=== PATIENT | female | born 1980 ===

== ENCOUNTER 2016-10-27 04:46 | Observation (INO) | payer BC ==
[2016-10-27 04:53] VITALS: RESP 20
--- NOTE | 2016-10-27 05:44 | ED PDOC ---
HPI: Abdomen Time Seen by Provider: 10/27/16 04:54 Chief Complaint (Nursing): Abdominal Pain Chief Complaint (Provider): Abdominal pain History Per: Patient History/Exam Limitations: no limitations Onset/Duration Of Symptoms: Hrs (2x hours prior to arrival) Current Symptoms Are (Timing): Still Present Severity: Moderate Location Of Pain/Discomfort: RUQ Quality Of Discomfort: Cramping Associated Symptoms: Nausea. denies: Vomiting, Diarrhea Additional Complaint(s): 35 year old female and is 6x weeks presents to the ED with complaints of RUQ abdominal pain that started 2x hours prior to arrival. She reports that she woke up with cramping and pain in her RUQ. She has associated symptoms of nausea, but denies having nausea, vomiting, fever, vaginal bleeding , and lower abdominal pain. She has not yet had an ultrasound for this . PMD: Quincy Crawley MD [employer]ER: Jermaine Luna MD Abnormal Vaginal Bleeding: No : 3 Para: 2 Past Medical History Reviewed: Historical Data, Nursing Documentation, Vital Signs Vital Signs: Last Vital Signs Temp 99.2 F 10/27/16 11:44 Pulse 80 10/27/16 11:44 Resp 20 10/27/16 11:44 BP 112/73 10/27/16 11:44 Pulse Ox 99 10/27/16 13:47 - Medical History PMH: No Chronic Diseases - Surgical History Surgical History: No Surg Hx - Family History Family History: States: No Known Family Hx - Allergies Allergies/Adverse Reactions: Allergies Allergy/AdvReac Type Severity Reaction Status Date / Time No Known Allergies Allergy Verified 10/27/16 05:05 Review of Systems ROS Statement: Except As Marked, All Systems Reviewed And Found Negative Constitutional: Negative for: Fever Gastrointestinal: Positive for: Nausea, Abdominal Pain (RUQ pain, no lower abdominal pain). Negative for: Vomiting, Diarrhea Genitourinary Female: Negative for: Vaginal Bleeding Physical Exam - Reviewed Nursing Documentation Reviewed: Yes Vital Signs Reviewed: Yes - Physical Exam Appears: Positive for: Well, Non-toxic, Uncomfortable Head Exam: Positive for: ATRAUMATIC, NORMOCEPHALIC Cardiovascular/Chest: Positive for: Regular Rate, Rhythm Respiratory: Positive for: Normal Breath Sounds Gastrointestinal/Abdominal: Positive for: Soft, Tenderness (positive walton's sing, RUQ tenderness, mild epigastric tenderness) Back: Positive for: Normal Inspection. Negative for: L CVA Tenderness, R CVA Tenderness Extremity: Positive for: Normal ROM Neurologic/Psych: Positive for: Alert, Oriented (3x) - Laboratory Results Result Diagrams: 10/27/16 05:30 10/27/16 05:29 - ECG O2 Sat by Pulse Oximetry: 99 (RA) Pulse Ox Interpretation: Normal Medical Decision Making Medical Decision Makin:54 Initial impression: 35 year old female with RUQ pain. Differential diagnoses include but are not limited to intrahepatic hemostasis, acute cholecystitis, biliary colic, colitis, and gastritis. Other conditions are considered but not listed. Initial plan: * US gallbladder and common duct * serum * CMP * lipase * test * dipstick * CBC * tylenol 650mg PO * reevaluation 5:25 Patient will be placed into ED observation secondary to clinical condition. See ED observation note for further updates. Scribe Attestation: Documented by Marlena Fox, acting as a scribe for Maxwell Ro MD. Provider Scribe Attestation: All medical record entries made by the Scribe were at my direction and personally dictated by me. I have reviewed the chart and agree that the record accurately reflects my personal performance of the history, physical exam, medical decision making, and the department course for this patient. I have also personally directed, reviewed, and agree with the discharge instructions and disposition. ED OBSERVATION Date of observation admission: 10/27/16 Time of observation admission: 05:25 - Observation admission statement Patient is being placed in observation because:: secondary to clinical condition - Goals of Observation Goals of observation are:: Patient is being placed in ED observation pending US gallbladder and common duct , reevaluation, and final disposition. Disposition - Clinical Impression Clinical Impression: Cholelithiasis affecting in first trimester, antepartum - Patient ED Disposition Is Patient to be Admitted: Transfer of Care Counseled Patient/Family Regarding: Studies Performed, Diagnosis - Disposition Disposition: Transfer of Care Disposition Time: 07:00 Condition: STABLE Patient Signed Over To: Ina Dumont Handoff Comments: pending US, labs, reeval, and final disposition.
[2016-10-27 05:55] LABS: BASO # 0.1 K/uL (0.0-0.2); BASO % 0.8 % (0.0-2.0); EOS # 0.2 K/uL (0.0-0.7); EOS % 1.5 % (0.0-4.0); HEMATOCRIT 36.1 % (34.0-47.0); LYMPH # 2.4 K/uL (1.0-4.3); LYMPH % 17.9 % (20.0-40.0); MEAN CELL VOLUME 82.4 fl (81.0-99.0); MEAN CORPUSCULAR HEMOGLOBIN 26.8 pg (27.0-31.0); MEAN CORPUSCULAR HGB CONC 32.6 g/dL (33.0-37.0); MEAN PLATELET VOLUME 8.8 fl (7.2-11.7); MONO # 0.8 K/uL (0.0-0.8); NEUT # 9.9 K/uL (1.8-7.0); NEUT % 73.8 % (50.0-75.0); RED CELL DISTRIBUTION WIDTH 14.9 % (11.5-14.5); WHITE BLOOD COUNT 13.4 K/uL (4.8-10.8)
[2016-10-27 07:14] LABS: ALB/GLOB RATIO 1.1 (1.0-2.1); ALKALINE PHOSPHATASE 71 U/L (38-126); ALT/SGPT 24 U/L (9-52); AST/SGOT 54 U/L (14-36); BILIRUBIN,TOTAL 0.4 mg/dl (0.2-1.3); BLOOD UREA NITROGEN 17 mg/dl (7-17); CALCIUM 9.2 mg/dL (8.4-10.2); CARBON DIOXIDE 19 mmol/L (22-30); CHLORIDE 108 mmol/L (98-107); GFR AFRICAN-AMERICAN > 60; GLUCOSE,RANDOM 93 mg/dL (65-105); LIPASE 132 U/L (23-300); POTASSIUM 3.8 MMOL/L (3.6-5.0); SODIUM 133 mmol/l (132-148); TOTAL PROTEIN 7.5 G/DL (6.3-8.2)
--- NOTE | 2016-10-27 07:19 | ED PDOC ---
- Laboratory Results Result Diagrams: 10/27/16 05:30 10/27/16 05:29 - ECG O2 Sat by Pulse Oximetry: 99 (RA) Medical Decision Making Medical Decision Making: Findings discussed with patient and family in detail, understands need for close follow-up with Ob and Surgery. Disposition - Clinical Impression Clinical Impression: Cholelithiasis affecting in first trimester, antepartum - POA Present On Arrival: None - Disposition Disposition: Routine/Home Disposition Time: 11:32 Condition: STABLE Addendum Addendum: 10/27/16 07:19 Pt signed out by Dr. Ro pending ultrasound.
--- NOTE | 2016-10-27 11:10 | US ---
HISTORY: ruq pain COMPARISON: None. TECHNIQUE: Sonographic evaluation of the right upper quadrant of the abdomen. FINDINGS: LIVER: Measures cm in length. Normal echogenicity of the liver parenchyma. No mass. No intrahepatic bile duct dilatation. GALLBLADDER: Cholelithiasis. COMMON BILE DUCT: Measures mm. No stones. No dilatation. PANCREAS: Unremarkable as visualized. No mass. No ductal dilatation. RIGHT KIDNEY: Measures cm in length. Normal echogenicity. No calculus, mass, or hydronephrosis. AORTA: No aneurysmal dilatation. IVC: Unremarkable. OTHER FINDINGS: None . IMPRESSION: Cholelithiasis.
--- NOTE | 2016-10-27 11:13 | US ---
PROCEDURE: HISTORY: ruq pain COMPARISON: TECHNIQUE: FINDINGS: The uterus measures 8.8 x 5.7 x 5.1 centimeters. There is an intrauterine gestational sac corresponding to 5 weeks and 3 days gestational age as well as a pole corresponding to 5 weeks and 6 days. There is no heart motion observed. IMPRESSION: Five week 6 day intrauterine gestation.
[2016-10-27 11:46] VITALS: BP 112/73; PULSE 80; TEMP 99.2
[2016-10-27 13:47] VITALS: O2SAT 99
== END 2016-10-27 11:51 | disposition home or self-care (01) ==
LOC: H.ER 04:46 → H.EROBSV 05:25
PROVIDERS: ADMIT Emergency Medicine; ATTEND Emergency Medicine
DX: O99.611 Diseases of the digestive system complicating pregnancy, first trimester (principal); Z3A.01 Less than 8 weeks gestation of pregnancy
CPT/HCPCS: 36415; 76705; 76817; 80053; 81025; 83690; 84702; 85025; 99285; G0378